=== PATIENT | female | born 1945 | race Caucasian/White ===

== ENCOUNTER 2022-12-04 09:00 | Emergency (ER) | payer OTHER ==
[~2022-12-04] VITALS: Ht 149.9 cm; Wt 55.8 kg
[2022-12-04 09:21] VITALS: BP_SYST 136
--- NOTE | 2022-12-04 09:28 | NUR ---
Placed in room 3 . Placed on field sales representative, blood pressure machine and pulse oximeter. To gown for exam. Side rails up. Report given to Irene. Addendum: 12/04/22 at 0930 by [email or web address] Placed in room 7 . Placed on field sales representative, blood pressure machine and pulse oximeter. To gown for exam. Side rails up. Report given to
--- NOTE | 2022-12-04 09:28 | NUR ---
Patient triaged and placed in waiting room . VSS and patient appears in no acute distress at this time. Accompanied by self, awaiting available bed, and MD notified of need for MSE.
--- NOTE | 2022-12-04 09:30 | NUR ---
PATIENT BIB SELF C/O RIGHT REAR FLANK PAIN 03/07 X 2 DAYS, BEGAN N/V THIS AM. LAST REGULAR BM YESTERDAY. DENIES DIARRHEA. NKA.
--- NOTE | 2022-12-04 09:45 | NUR ---
DR TALLEY AT BEDSIDE
--- NOTE | 2022-12-04 09:49 | NUR ---
[employer] INS[employer]OR BEDSIDE
[2022-12-04 10:12] LABS: BASOPHILS % (AUTO) 0.2 % (0.0-2.0); EOSINOPHILS % (AUTO) 0.2 % (0.0-4.0); HEMATOCRIT 40.5 % (36-48); HEMOGLOBIN 13.7 g/dL (12.0-16.0); LYMPHOCYTES # (AUTO) 1.9 K/uL (1.0-5.5); LYMPHOCYTES % (AUTO) 35.3 % (20.5-51.5); MEAN CORPUSCULAR HEMOGLOBIN 30 pg (27-31); MEAN CORPUSCULAR HGB CONC 34 % (32-36); MEAN CORPUSCULAR VOLUME 89 fL (79.0-98.0); MONOCYTES # (AUTO) 0.4 K/uL (0.0-1.0); MONOCYTES % (AUTO) 7.4 % (1.7-9.3); NEUTROPHILS # (AUTO) 3.1 K/uL (1.8-7.7); NEUTROPHILS % (AUTO) 56.9 % (40.0-70.0); PLATELET COUNT (AUTO) 163 K/uL (130-430); RED BLOOD CELL COUNT(AUTO) 4.56 MIL/uL (4.2-6.2); RED CELL DISTRIBUTION WIDTH 14.1 % (9.0-15.0); WHITE BLOOD COUNT (AUTO) 5.5 K/uL (4.8-10.8)
[2022-12-04 10:16] LABS: ANION GAP 5 (5-15); CALCIUM 8.9 mg/dL (8.4-11.0); CHLORIDE 100 mmol/L (98-107); CREATININE 0.67 mg/dL (0.55-1.30); GLUCOSE 110 mg/dL (70-99); UREA NITROGEN, BLOOD 11 mg/dL (8-21)
[2022-12-04 10:21] LABS: ALANINE AMINOTRANSFERASE 20 U/L (12-78); ALBUMIN 3.2 g/dL (3.4-4.8); AMYLASE 95 U/L (0-100); ASPARTATE AMINOTRANSFERASE 21 U/L (10-37); LIPASE 135 U/L (73-393); TOTAL BILIRUBIN 0.4 mg/dL (0.0-1.0)
[2022-12-04 10:23] LABS: C-REACTIVE PROTEIN QUANT < 0.2 mg/dL (0-0.5)
[2022-12-04 11:35] LABS: BILIRUBIN,URINE NEGATIVE (NEGATIVE); BLOOD, URINE NEGATIVE (NEGATIVE); CLARITY/URINE CLEAR (CLEAR); COLOR,URINE YELLOW (YELLOW); GLUCOSE,URINE NEGATIVE (NEGATIVE); KETONES,URINE NEGATIVE (NEGATIVE); LEUKOCYTE ESTERASE ,URINE NEGATIVE (NEGATIVE); NITRITE, URINE NEGATIVE (NEGATIVE); PROTEIN URINE NEGATIVE (NEGATIVE); UROBILINOGEN,URINE 0.2 (0.2-1.0)
[2022-12-04] MEDS ORDERED: TRAM50TA2 PO (12:09)
[2022-12-04] MEDS ORDERED: IBUP-1969 PO (12:09)
[2022-12-04] MEDS ORDERED: KETOROLAC TROMETHAMINE 30 MG VIAL IM ONE (12:15)
[2022-12-04 12:40] VITALS: BP_SYST 138
--- NOTE | 2022-12-04 12:40 | NUR ---
Patient given written and verbal discharge instructions and verbalizes understanding. ER MD TALLEY discussed with patient the results and treatment provided. Patient in stable condition. ID arm band removed. Rx of IBUPROFEN, TRAMADOL given. Patient educated on pain management and to follow up with PMD. Pain Scale 6/10. Opportunity for questions provided and answered. Medication side effect fact sheet provided.
== END 2022-12-04 12:40 | disposition home or self-care (01) ==
LOC: SED 09:00
DX: R10.9 Unspecified abdominal pain (principal); R11.0 Nausea; R51.9 Headache, unspecified; Z79.899 Other long term (current) drug therapy
CPT/HCPCS: 99285; 74176; 80053; 82150; 83690; 85025; 86140; 36415; 76376; 96372; 83605; 81003; J1885